=== PATIENT | female | born 1995 | race Caucasian/White ===

== ENCOUNTER 2024-02-13 11:37 | Emergency (ER) | payer SELFPAY ==
[2024-02-13] MEDS: Ibuprofen 200 MG Tab PO ONE (11:57)
== END 2024-02-13 12:36 | disposition home or self-care (01) ==
LOC: CC.ED 11:37
DX: S49.92XA Unspecified injury of left shoulder and upper arm, initial encounter (principal); W19.XXXA Unspecified fall, initial encounter; Y92.79 Other farm location as the place of occurrence of the external cause; Y93.89 Activity, other specified
CPT/HCPCS: 73030-LT; 99283; A9270-GY